=== PATIENT | female | born 1955 | race Caucasian/White ===

== ENCOUNTER 2023-05-31 02:19 | Observation (INO) | payer MEDICARE ==
[2023-05-31] MEDS ORDERED: Ondansetron ODT 4 MG TAB PO PRN (05:16)
[2023-05-31] MEDS ORDERED: Acetaminophen 650 MG Suppository PR PRN (05:16)
[2023-05-31] MEDS ORDERED: Acetaminophen 325 MG TAB PO PRN (05:16)
[2023-05-31] MEDS ORDERED: Ondansetron PF 4 MG/2 ML Vial IVP PRN (05:16)
[2023-05-31] MEDS ORDERED: Piperacillin/Tazobactam 3.375 GM in Sodium Chloride 0.9% 100 ML IVPB SCH ×2 (05:45→10:00)
[2023-05-31] MEDS ORDERED: Pantoprazole 40 MG VIAL IVP SCH (07:15)
[2023-05-31] MEDS: Sodium Chloride 0.9% 1,000 ML IV SCH ×3 (10:00→20:53)
[2023-05-31 10:57] VITALS: BMI 25.2
[2023-05-31] MEDS ORDERED: FLU VACC QS2023(65UP)/MF59C/PF 60 MCG/0.5 ML SYRINGE IM ONE (12:00)
[2023-05-31] MEDS: Piperacillin/Tazobactam 3.375 GM in Sodium Chloride 0.9% 100 ML IVPB SCH ×2 (15:29→23:53)
[2023-06-01 04:48] LABS: Hematocrit 32.5 % (36.0-47.0); Hemoglobin 10.7 g/dL (12.0-16.0); Mean Corpuscular HGB CONC 32.9 g/dL (32.0-36.0); Mean Corpuscular Hemoglobin 30.3 pg (27.0-31.0); Mean Corpuscular Volume 92.1 fl (78.0-98.0); Mean Platelet Volume 10.2 fL (7.4-10.4); Platelet Count 120 10x3/uL (130-400); RBC Distribution Width 14.1 % (11.5-14.5); Red Blood Cell (RBC) Count 3.53 mill/uL (4.20-5.40)
[2023-06-01 04:56] LABS: Delete Auto Diff?? YES; Manual Diff?? YES
[2023-06-01 05:06] LABS: Anion Gap 10 mmol/L (10-20); BUN (Urea Nitrogen) 9 mg/dL (9.8-20.1); Calc. Creatinine Clearance 100 mL/min (70-130); Calcium 8.2 mg/dL (7.8-10.44); Carbon Dioxide 24 mmol/L (23-31); Chloride 111 mmol/L (98-107); Estimated GFR 98; Glucose 91 mg/dL (80-115); Potassium 3.4 mmol/L (3.5-5.1); Sodium 142 mmol/L (136-145)
[2023-06-01 05:52] LABS: Band 1 % (5-11); CellaVision Operator ID lab.sh2; Eosinophils 3 % (0-10); Lymphocytes 39 % (21-51); Monocytes 5 % (0-10); Neutrophil 52 % (42-75); Platelet Adequacy Comment Platelets Decreased; RBC Morphology Within Normal Limits; Total Cell Count 100
[2023-06-01] MEDS ORDERED: Pantoprazole 40 MG VIAL IVP SCH (09:00)
[2023-06-01] MEDS: Piperacillin/Tazobactam 3.375 GM in Sodium Chloride 0.9% 100 ML IVPB SCH (09:15)
[2023-06-01 12:06] VITALS: BP 106/64; TEMP 97.7
== END 2023-06-01 15:02 | disposition home or self-care (01) ==
LOC: ERS 02:19 → 2NO 05:40
PROVIDERS: ADMIT Student in an Organized Health Care Education/Training Program; ATTEND Internal Medicine
DX: K52.9 Noninfective gastroenteritis and colitis, unspecified (principal); R55 Syncope and collapse; I07.1 Rheumatic tricuspid insufficiency; K43.9 Ventral hernia without obstruction or gangrene; K42.9 Umbilical hernia without obstruction or gangrene
CPT/HCPCS: 80048; 85025; 90694; 93306; 96374; 96375; 96376; 99285; G0008; G0378 ×3; 36415; 90471; C9113; J2543; J3490; J7050

== ENCOUNTER 2023-06-03 09:58 | Outpatient (CLI) | payer MEDICARE, OTHER | END 2023-06-03 09:59 | disposition home or self-care (01) | LOC: BICMAMMO 09:58 | PROVIDERS: ATTEND Family Medicine | DX: Z12.31 Encounter for screening mammogram for malignant neoplasm of breast (principal); N64.89 Other specified disorders of breast | CPT/HCPCS: 77063; 77067 ==

== ENCOUNTER 2023-06-23 13:29 | Outpatient (CLI) | payer MEDICARE | END 2023-06-23 13:30 | disposition home or self-care (01) | LOC: BICMAMMO 13:29 | PROVIDERS: ATTEND Family Medicine | DX: N64.89 Other specified disorders of breast (principal) | CPT/HCPCS: 76642; 77065; G0279 ==

== ENCOUNTER 2023-07-16 09:19 | Outpatient (CLI) | payer MEDICARE, OTHER | END 2023-07-16 09:20 | disposition home or self-care (01) | LOC: RAD 09:19 | PROVIDERS: ATTEND Surgery | DX: K44.9 Diaphragmatic hernia without obstruction or gangrene (principal) | CPT/HCPCS: 74220 ==

== ENCOUNTER 2023-07-31 07:22 | Day surgery (SDC) | payer MEDICARE, OTHER ==
[2023-07-30 11:45] VITALS: BMI 25.0
[2023-07-31] MEDS ORDERED: PROPOFOL 20 ML ONE (10:17)
[2023-07-31] MEDS ORDERED: Rocuronium Bromide 10 MG/ML (10ML VIAL) ONE (10:18)
[2023-07-31] MEDS ORDERED: Lidocaine 1% PF 5 ML VIAL ONE (10:18)
[2023-07-31] MEDS ORDERED: fentaNYL PF 100 MCG/2 ML SYRINGE ONE ×3 (10:18→13:19)
[2023-07-31] MEDS ORDERED: CEFAZOLIN 2 GM VIAL ONE (10:25)
[2023-07-31] MEDS ORDERED: Sodium Chloride 0.9% 100 ML ONE (10:25)
[2023-07-31] MEDS ORDERED: EPINEPHrine 1 MG/ML VIAL ONE ×2 (10:34→12:23)
[2023-07-31] MEDS ORDERED: Bupivacaine 0.25% HCL 30 ML VIAL ONE ×2 (10:35→12:23)
[2023-07-31] MEDS ORDERED: Dexamethasone 20 MG/5 ML VIAL ONE (11:49)
[2023-07-31] MEDS ORDERED: PHENYLEPHRINE-NS 100 MCG/ML 10 ML SYRINGE ONE (11:49)
[2023-07-31] MEDS ORDERED: Ondansetron PF 4 MG/2 ML Vial ONE (12:45)
[2023-07-31] MEDS ORDERED: SUGAMMADEX SODIUM 200 MG/2 ML VIAL ONE (12:45)
[2023-07-31] MEDS ORDERED: Meperidine HCl/PF 25 MG (1 mL) VIAL ONE (13:08)
== END 2023-07-31 15:03 | disposition home or self-care (01) ==
LOC: SDC 07:22
PROVIDERS: ATTEND Surgery
PROC: 0WQF4ZZ Repair Abdominal Wall, Percutaneous Endoscopic Approach (ICD-10-PCS; principal; 2023-07-31)
PROC: 0DV44ZZ Restriction of Esophagogastric Junction, Percutaneous Endoscopic Approach (ICD-10-PCS; 2023-07-31)
PROC: 0BQT4ZZ Repair Diaphragm, Percutaneous Endoscopic Approach (ICD-10-PCS; 2023-07-31)
DX: K44.9 Diaphragmatic hernia without obstruction or gangrene (principal); K43.9 Ventral hernia without obstruction or gangrene; K21.00 Gastro-esophageal reflux disease with esophagitis, without bleeding; Z79.899 Other long term (current) drug therapy
CPT/HCPCS: 43281; 49593; C1781; J0171; J0665; J1100; J2175; J2405; J2704; J3490

== ENCOUNTER 2023-12-26 13:37 | Emergency (ER) | payer MEDICARE ==
[2023-12-26 16:57] LABS: #Basophils 0.03 10x3/uL (0.0-0.2); %Basophils 0.7 % (0.0-1.0); %Lymphocytes 33.7 % (21.0-51.0); %Monocytes 3.4 % (0.0-10.0); Hematocrit 39.8 % (36.0-47.0); Hemoglobin 13.4 g/dL (12.0-16.0); Mean Corpuscular HGB CONC 33.7 g/dL (32.0-36.0); Mean Corpuscular Hemoglobin 30.1 pg (27.0-31.0); Mean Corpuscular Volume 89.4 fL (78.0-98.0); Mean Platelet Volume 9.8 fL (7.4-10.4); Platelet Count 129 10x3/uL (130-400); RBC Distribution Width 13.6 % (11.5-14.5); Red Blood Cell (RBC) Count 4.45 mill/uL (4.20-5.40)
[2023-12-26 17:10] LABS: ALT (SGPT) 10 U/L (8-55); AST (SGOT) 14 U/L (5-34); Albumin 4.3 g/dL (3.4-4.8); Alkaline Phosphatase 66 U/L (40-110); Anion Gap 14 mmol/L (10-20); BUN (Urea Nitrogen) 11 mg/dL (9.8-20.1); Bilirubin, Total 0.7 mg/dL (0.2-1.2); Calc. Creatinine Clearance 0 mL/min (70-130); Calcium 9.6 mg/dL (7.8-10.44); Carbon Dioxide 23 mmol/L (23-31); Chloride 106 mmol/L (98-107); Estimated GFR 95; Globulin 2.5 g/dL (2.4-3.5); Glucose 101 mg/dL (80-115); Lipase 20 U/L (8-78); Potassium 3.8 mmol/L (3.5-5.1); Protein, Total 6.8 g/dL (5.8-8.1); Sodium 139 mmol/L (136-145)
[2023-12-26 18:39] LABS: Bacteria/HPF None Seen HPF (None Seen); Bilirubin Negative (Negative); Blood, Urine Negative (Negative); CAUTI Indications for Culture Alt mental st,lethar; Clarity Clear (Clear); Glucose, Urine (Dipstick) Normal (Negative); Ketone, Urine 60 mg/dL (Negative); Leukocyte Negative Leu/uL (Negative); Nitrite Negative (Negative); Protein, Urine (Dipstick) Negative (Neg-Trace); RBC/HPF None Seen HPF (0-3); Squamous Epithelial 0-3 HPF (0-3); Urobilinogen Normal mg/dL (Less than 2); WBC/HPF None Seen HPF (0-3); pH, Urine 5.5 (5.0-9.0)
[2023-12-26 18:43] LABS: Specific Gravity, Urine 1.034 (1.002-1.036)
[2023-12-26 18:44] LABS: Urine Culture Reflex No No
== END 2023-12-26 19:13 ==
LOC: ERS 13:37
DX: R11.2 Nausea with vomiting, unspecified (principal)
CPT/HCPCS: 36415; 74177; 80053; 81001; 83690; 85025

== ENCOUNTER 2024-01-22 20:53 | Inpatient (IN) | payer MEDICARE ==
[2024-01-22] MEDS ORDERED: Acetaminophen 325 MG TAB PO PRN (23:15)
[2024-01-22] MEDS: Famotidine/PF 20 mg/2ml Vial SLOW IVP SCH (23:48)
[2024-01-22] MEDS: Lactated Ringer's 1,000 ML IV SCH (23:51)
[2024-01-23 05:42] LABS: Hematocrit 35.2 % (36.0-47.0); Hemoglobin 11.8 g/dL (12.0-16.0); Mean Corpuscular HGB CONC 33.5 g/dL (32.0-36.0); Mean Corpuscular Hemoglobin 30.3 pg (27.0-31.0); Mean Corpuscular Volume 90.3 fL (78.0-98.0); Mean Platelet Volume 9.9 fL (7.4-10.4); Platelet Count 142 10x3/uL (130-400); RBC Distribution Width 13.6 % (11.5-14.5)
[2024-01-23 05:50] LABS: Anion Gap 12 mmol/L (10-20); BUN (Urea Nitrogen) 10 mg/dL (9.8-20.1); Calc. Creatinine Clearance 78 mL/min (70-130); Calcium 8.9 mg/dL (7.8-10.44); Carbon Dioxide 23 mmol/L (23-31); Chloride 108 mmol/L (98-107); Estimated GFR 96; Glucose 100 mg/dL (83-110); Potassium 3.4 mmol/L (3.5-5.1); Sodium 140 mmol/L (136-145)
[2024-01-23] MEDS: Ondansetron PF 4 MG/2 ML Vial IVP PRN (06:08)
[2024-01-23 06:39] LABS: Lymphocytes 18 % (21-51); Monocytes 2 % (0-10); Neutrophil 81 % (42-75); Platelet Adequacy Comment Platelets Normal; RBC Morphology Within Normal Limits; Smudge Cells 22.6 %
[2024-01-23] MEDS ORDERED: Lidocaine 2% PF 5 ML VIAL ONE (09:33)
[2024-01-23] MEDS ORDERED: PROPOFOL 20 ML ONE ×2 (09:33→10:11)
[2024-01-23] MEDS ORDERED: fentaNYL 50 mcg/mL 1 mL Vial ONE (10:02)
[2024-01-23] MEDS: Famotidine/PF 20 mg/2ml Vial SLOW IVP SCH (11:39)
[2024-01-23] MEDS: Potassium Chloride 20 MEQ in Premix 1 BAG IVPB SCH (11:57)
[2024-01-23] MEDS ORDERED: E-Z-HD 98% W/W 340GM BOT (x-ray ONLY) ONE (13:33)
[2024-01-23] MEDS ORDERED: Barium Sulfate 96% 176 GM BOT (xray ONLY) ONE (13:33)
[2024-01-23] MEDS: Lidocaine 4% Patch TD SCH (22:36)
[2024-01-24 05:23] LABS: #Basophils Less than 0.03 10x3/uL (0.0-0.2); %Basophils 0.6 % (0.0-1.0); %Eosinophils 1.3 % (0.0-10.0); %Lymphocytes 42.5 % (21.0-51.0); %Monocytes 4.4 % (0.0-10.0); %Neutrophils 50.9 % (42.0-75.0); Hematocrit 34.2 % (36.0-47.0); Hemoglobin 11.3 g/dL (12.0-16.0); Mean Corpuscular Hemoglobin 29.1 pg (27.0-31.0); Mean Corpuscular Volume 88.1 fL (78.0-98.0); Mean Platelet Volume 10.5 fL (7.4-10.4); Platelet Count 106 10x3/uL (130-400); RBC Distribution Width 13.6 % (11.5-14.5); Red Blood Cell (RBC) Count 3.88 mill/uL (4.20-5.40)
[2024-01-24 05:38] LABS: Anion Gap 15 mmol/L (10-20); BUN (Urea Nitrogen) 8 mg/dL (9.8-20.1); Calc. Creatinine Clearance 90 mL/min (70-130); Calcium 8.6 mg/dL (7.8-10.44); Carbon Dioxide 18 mmol/L (23-31); Chloride 108 mmol/L (98-107); Estimated GFR 99; Glucose 68 mg/dL (83-110); Potassium 3.7 mmol/L (3.5-5.1); Sodium 137 mmol/L (136-145)
[2024-01-24] MEDS: Dextrose 5%-Lactated Ringers 1,000 ML IV SCH (06:19)
[2024-01-24] MEDS: Transdermal Patch Removal TOP SCH (09:25)
[2024-01-24] MEDS: Ketorolac Tromethamine 30 MG (1 mL) VIAL IVP SCH (11:01)
[2024-01-25 11:21] LABS: #Basophils Less than 0.03 10x3/uL (0.0-0.2); %Basophils 0.4 % (0.0-1.0); %Eosinophils 1.2 % (0.0-10.0); %Lymphocytes 40.1 % (21.0-51.0); %Monocytes 6.3 % (0.0-10.0); Hematocrit 33.8 % (36.0-47.0); Hemoglobin 11.4 g/dL (12.0-16.0); Mean Corpuscular HGB CONC 33.7 g/dL (32.0-36.0); Mean Corpuscular Hemoglobin 29.7 pg (27.0-31.0); Platelet Count 122 10x3/uL (130-400); RBC Distribution Width 13.5 % (11.5-14.5); Red Blood Cell (RBC) Count 3.84 mill/uL (4.20-5.40)
[2024-01-25 11:33] LABS: INR-International Normal Ratio 1.1; PTT 25.6 sec (22.9-36.1); Prothrombin Time 14.2 sec (12.0-14.7)
[2024-01-25 11:41] LABS: Anion Gap 13 mmol/L (10-20); BUN (Urea Nitrogen) Less than 4 mg/dL (9.8-20.1); Calc. Creatinine Clearance 79 mL/min (70-130); Calcium 8.8 mg/dL (7.8-10.44); Carbon Dioxide 25 mmol/L (23-31); Chloride 109 mmol/L (98-107); Estimated GFR 96; Glucose 113 mg/dL (83-110); Potassium 3.8 mmol/L (3.5-5.1); Sodium 143 mmol/L (136-145)
[2024-01-25] MEDS: Ketorolac Tromethamine 30 MG (1 mL) VIAL IVP SCH (20:31)
[2024-01-26 08:37] LABS: Anion Gap 12 mmol/L (10-20); BUN (Urea Nitrogen) Less than 4 mg/dL (9.8-20.1); Calc. Creatinine Clearance 81 mL/min (70-130); Calcium 9.3 mg/dL (7.8-10.44); Carbon Dioxide 26 mmol/L (23-31); Chloride 109 mmol/L (98-107); Estimated GFR 96; Glucose 88 mg/dL (83-110); Potassium 3.8 mmol/L (3.5-5.1); Sodium 143 mmol/L (136-145)
[2024-01-26 08:38] LABS: Hematocrit 36.8 % (36.0-47.0); Hemoglobin 12.2 g/dL (12.0-16.0); Mean Corpuscular HGB CONC 33.2 g/dL (32.0-36.0); Mean Corpuscular Hemoglobin 29.7 pg (27.0-31.0); Mean Corpuscular Volume 89.5 fL (78.0-98.0); Mean Platelet Volume 9.8 fL (7.4-10.4); Platelet Count 128 10x3/uL (130-400); RBC Distribution Width 13.7 % (11.5-14.5); Red Blood Cell (RBC) Count 4.11 mill/uL (4.20-5.40)
[2024-01-26 09:46] LABS: Band 7 % (5-11); Eosinophils 1 % (0-10); Lymphocytes 43 % (21-51); Monocytes 3 % (0-10); Neutrophil 44 % (42-75); Platelet Adequacy Comment Platelets Decreased; RBC Morphology Within Normal Limits; Reactive Lymphocytes 3 % (0-10)
[2024-01-27 05:49] LABS: Hematocrit 31.6 % (36.0-47.0); Hemoglobin 10.5 g/dL (12.0-16.0); Mean Corpuscular HGB CONC 33.2 g/dL (32.0-36.0); Mean Corpuscular Hemoglobin 29.2 pg (27.0-31.0); Mean Platelet Volume 10.3 fL (7.4-10.4); Platelet Count 109 10x3/uL (130-400); RBC Distribution Width 13.7 % (11.5-14.5); Red Blood Cell (RBC) Count 3.59 mill/uL (4.20-5.40)
[2024-01-27 05:53] LABS: Anion Gap 12 mmol/L (10-20); BUN (Urea Nitrogen) 4 mg/dL (9.8-20.1); Calc. Creatinine Clearance 83 mL/min (70-130); Calcium 8.5 mg/dL (7.8-10.44); Carbon Dioxide 24 mmol/L (23-31); Chloride 111 mmol/L (98-107); Estimated GFR 97; Glucose 92 mg/dL (83-110); Potassium 3.6 mmol/L (3.5-5.1); Sodium 143 mmol/L (136-145)
[2024-01-27 06:29] LABS: Eosinophils 2 % (0-10); Lymphocytes 52 % (21-51); Monocytes 2 % (0-10); Neutrophil 45 % (42-75); Platelet Adequacy Comment Platelets Decreased; RBC Morphology Within Normal Limits; Smudge Cells 15.2 %
[2024-01-27] MEDS ORDERED: PROPOFOL 0 ML ONE (12:21)
[2024-01-27] MEDS ORDERED: Lidocaine 1% PF 5 ML VIAL ONE (12:22)
[2024-01-27] MEDS ORDERED: Rocuronium Bromide 10 MG/ML (10ML VIAL) ONE ×2 (12:22→15:04)
[2024-01-27] MEDS ORDERED: Bupivacaine 0.25% HCL 30 ML VIAL ONE ×2 (14:30→16:45)
[2024-01-27] MEDS ORDERED: EPINEPHrine 1 MG/ML VIAL ONE ×2 (14:30→16:45)
[2024-01-27] MEDS ORDERED: PROPOFOL 20 ML ONE (15:04)
[2024-01-27] MEDS ORDERED: fentaNYL PF 100 MCG/2 ML SYRINGE ONE ×3 (15:04→17:19)
[2024-01-27] MEDS ORDERED: Dexamethasone 4 mg/ml Vial ONE (15:37)
[2024-01-27] MEDS ORDERED: Ondansetron PF 4 MG/2 ML Vial ONE ×2 (15:37→17:05)
[2024-01-27] MEDS ORDERED: SUGAMMADEX SODIUM 200 MG/2 ML VIAL ONE (16:41)
[2024-01-27] MEDS ORDERED: traMADol HCl 50 MG TAB PO PRN ×2 (17:19)
[2024-01-27] MEDS ORDERED: fentaNYL 50 mcg/mL 1 mL Vial ONE (17:48)
[2024-01-27] MEDS: Acetaminophen 325 MG TAB PO SCH (19:01)
[2024-01-27] MEDS: Ketorolac Tromethamine 30 MG (1 mL) VIAL IVP PRN (19:02)
[2024-01-28 06:25] LABS: #Basophils Less than 0.03 10x3/uL (0.0-0.2); %Basophils 0.5 % (0.0-1.0); %Eosinophils 0.7 % (0.0-10.0); %Lymphocytes 33.2 % (21.0-51.0); %Monocytes 4.8 % (0.0-10.0); %Neutrophils 60.3 % (42.0-75.0); Hematocrit 35.4 % (36.0-47.0); Hemoglobin 11.7 g/dL (12.0-16.0); Mean Corpuscular HGB CONC 33.1 g/dL (32.0-36.0); Mean Corpuscular Volume 90.8 fL (78.0-98.0); Mean Platelet Volume 10.1 fL (7.4-10.4); Platelet Count 140 10x3/uL (130-400); RBC Distribution Width 13.6 % (11.5-14.5)
[2024-01-28] MEDS ORDERED: Barium Sulfate 96% 176 GM BOT (xray ONLY) ONE (06:32)
[2024-01-28] MEDS ORDERED: MD-Gastroview 120 ML BOT ONE (06:32)
[2024-01-28 06:51] LABS: Anion Gap 13 mmol/L (10-20); BUN (Urea Nitrogen) 4 mg/dL (9.8-20.1); Calc. Creatinine Clearance 78 mL/min (70-130); Carbon Dioxide 24 mmol/L (23-31); Chloride 106 mmol/L (98-107); Estimated GFR 96; Glucose 94 mg/dL (83-110); Potassium 3.9 mmol/L (3.5-5.1); Sodium 139 mmol/L (136-145)
[2024-01-28 07:01] LABS: Band 11 % (5-11); Eosinophils 2 % (0-10); Hypochromia SLIGHT = 6-15 cells HPF (0-5); Lymphocytes 37 % (21-51); Monocytes 2 % (0-10); Neutrophil 49 % (42-75); Platelet Adequacy Comment Platelets Normal
[2024-01-28] MEDS: Pantoprazole 40 MG VIAL IVP SCH (08:32)
[2024-01-28 08:42] VITALS: BP 111/73; TEMP 98
== END 2024-01-28 11:51 | disposition home or self-care (01) | DRG 327 ==
LOC: T4-B 22:21 → OBSVTOIN 01-23 16:13
PROVIDERS: ADMIT Internal Medicine; ATTEND Internal Medicine
PROC: 0DV44ZZ Restriction of Esophagogastric Junction, Percutaneous Endoscopic Approach (ICD-10-PCS; principal; 2024-01-23)
PROC: 0BQT4ZZ Repair Diaphragm, Percutaneous Endoscopic Approach (ICD-10-PCS; 2024-01-27)
PROC: 0D738ZZ Dilation of Lower Esophagus, Via Natural or Artificial Opening Endoscopic (ICD-10-PCS; 2024-01-27)
PROC: 8E0W4CZ Robotic Assisted Procedure of Trunk Region, Percutaneous Endoscopic Approach (ICD-10-PCS; 2024-01-27)
DX: K91.89 Other postprocedural complications and disorders of digestive system (principal); K22.10 Ulcer of esophagus without bleeding; K22.2 Esophageal obstruction; D64.9 Anemia, unspecified; K43.2 Incisional hernia without obstruction or gangrene; R13.10 Dysphagia, unspecified; Z88.8 Allergy status to other drugs, medicaments and biological substances; K31.89 Other diseases of stomach and duodenum
CPT/HCPCS: 36415; 36416; 74220; 80048; 85025; 85610; 85730; 96374; 96375; C1726; C9113; G0378; J0171; J0665; J1100; J1885; J2001; J2405; J2704; J3010; J3480; J7120; Q9963; S0028